=== PATIENT | female | born 1990 | race Two or more races ===

== ENCOUNTER 2019-01-17 19:52 | Emergency (ER) | payer SELFPAY ==
[~2019-01-17] VITALS: Ht 160 cm; Wt 54.4 kg
[2019-01-17] MEDS ORDERED: IV NORMAL SALINE 1000ML BAG 1,000 ML IV ONE (21:15)
[2019-01-17] MEDS ORDERED: ONDANSETRON PF 4 MG/2 ML VIAL. IV ONE (21:15)
--- NOTE | 2019-01-17 21:19 | PHYS DOC ---
Past Medical History Past Medical History: No Pertinent History Past Surgical History: No Surgical History Alcohol Use: Occasionally Drug Use: None Adult General Chief Complaint Chief Complaint: ABDOMINAL PAIN HPI HPI Patient is a 28 year old female that presents with abdominal pain and vaginal bleeding has been ongoing for month. The patient states he may that she was told that she possibly had a miscarriage. Is unsure if she ever expelled contents. States she went to her doctor's office in October was placed on a Depo shot. Rates her pain as 9/10 in severity. 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 Eyes: Denies change in visual acuity, redness, or eye pain [] HENT: Denies nasal congestion or sore throat [] Respiratory: Denies cough or shortness of breath [] Cardiovascular: No additional information not addressed in HPI [] GI: Reports abdominal pain, nausea Denies vomiting, bloody stools or diarrhea [] : Reports vaginal bleeding. Musculoskeletal: Denies back pain or joint pain [] Integument: Denies rash or skin lesions [] Neurologic: Denies headache, focal weakness or sensory changes [] Endocrine: Denies polyuria or polydipsia [] Complete systems were reviewed and found to be within normal limits, except as documented in this note. Current Medications Current Medications Current Medications Medications (Trade) Dose Ordered Sig/Kem Start Time Stop Time Status Last Admin Dose Admin Ondansetron HCl (Zofran) 4 mg 1X ONCE 01/17/19 21:15 01/17/19 21:20 DC 01/17/19 21:31 4 MG Sodium Chloride 1,000 ml @ 1,000 mls/hr 1X ONCE 01/17/19 21:15 01/17/19 22:14 DC 01/17/19 21:31 1,000 MLS/HR Allergies Allergies Allergies Coded Allergies Type Severity Reaction Last Updated Verified No Known Drug Allergies 06/11/13 No Physical Exam Physical Exam Constitutional: Well developed, well nourished, no acute distress, non-toxic appearance. [] HENT: Normocephalic, atraumatic, bilateral external ears normal, oropharynx moist, no oral exudates, nose normal. [] Eyes: PERRLA, EOMI, conjunctiva normal, no discharge. [] Neck: Normal range of motion, no tenderness, supple, no stridor. [] Cardiovascular:Heart rate regular rhythm, no murmur [] Lungs & Thorax: Bilateral breath sounds clear to auscultation [] Abdomen: Bowel sounds normal, soft, diffuse tenderness, no masses, no pulsatile masses. [] Skin: Warm, dry, no erythema, no rash. [] Back: No tenderness, no CVA tenderness. [] Extremities: No tenderness, no cyanosis, no clubbing, ROM intact, no edema. [] Neurologic: Alert and oriented X 3, normal motor function, normal sensory function, no focal deficits noted. [] Psychologic: Affect normal, judgement normal, mood normal. [] Current Patient Data Vital Signs Vital Signs Date Time Temp Pulse Resp B/P (MAP) Pulse Ox O2 Delivery O2 Flow Rate FiO2 01/17/19 20:15 98.5 67 18 104/60 (75) 98 Room Air 98.5 Lab Values Laboratory Tests Test 01/17/19 20:02 01/17/19 20:06 01/17/19 21:22 Urine Collection Type Unknown Urine Color Yellow Urine Clarity Clear Urine pH 7.0 Urine Specific [place] 1.025 Urine Protein Negative mg/dL (NEG-TRACE) Urine Glucose (UA) Negative mg/dL (NEG) Urine Ketones (Stick) Negative mg/dL (NEG) Urine Blood Large (NEG) Urine Nitrite Negative (NEG) Urine Bilirubin Negative (NEG) Urine Urobilinogen Dipstick 1.0 mg/dL (0.2 mg/dL) Urine Leukocyte Esterase Large (NEG) Urine RBC 11-20 /HPF (0-2) Urine WBC 20-40 /HPF (0-4) Urine Squamous Epithelial Cells Few /LPF Urine Bacteria Few /HPF (0-FEW) Urine Mucus Mod /LPF POC Urine HCG, Qualitative Hcg negative (Negative) White Blood Count 7.7 x10^3/uL (4.0-11.0) Red Blood Count 4.28 x10^6/uL (3.50-5.40) Hemoglobin 12.5 g/dL (12.0-15.5) Hematocrit 37.3 % (36.0-47.0) Mean Corpuscular Volume 87 fL (79-100) Mean Corpuscular Hemoglobin 29 pg (25-35) Mean Corpuscular Hemoglobin Concent 34 g/dL (31-37) Red Cell Distribution Width 14.6 % (11.5-14.5) H Platelet Count 229 x10^3/uL (140-400) Neutrophils (%) (Auto) 45 % (31-73) Lymphocytes (%) (Auto) 45 % (24-48) Monocytes (%) (Auto) 6 % (0-9) Eosinophils (%) (Auto) 3 % (0-3) Basophils (%) (Auto) 0 % (0-3) Neutrophils # (Auto) 3.5 x10^3/uL (1.8-7.7) Lymphocytes # (Auto) 3.5 x10^3/uL (1.0-4.8) Monocytes # (Auto) 0.5 x10^3/uL (0.0-1.1) Eosinophils # (Auto) 0.2 x10^3/uL (0.0-0.7) Basophils # (Auto) 0.0 x10^3/uL (0.0-0.2) Maternal Serum HCG Beta Subunit < 1 mIU/mL (0-5) Sodium Level 143 mmol/L (136-145) Potassium Level 3.5 mmol/L (3.5-5.1) Chloride Level 106 mmol/L (98-107) Carbon Dioxide Level 26 mmol/L (21-32) Anion Gap 11 (6-14) Blood Urea Nitrogen 12 mg/dL (7-20) Creatinine 0.8 mg/dL (0.6-1.0) Estimated GFR (Cockcroft-Gault) 86.7 BUN/Creatinine Ratio 15 (6-20) Glucose Level 102 mg/dL (70-99) H Calcium Level 9.0 mg/dL (8.5-10.1) Total Bilirubin 0.2 mg/dL (0.2-1.0) Aspartate Amino Transferase (AST) 13 U/L (15-37) L Alanine Aminotransferase (ALT) 20 U/L (14-59) Alkaline Phosphatase 111 U/L (46-116) Total Protein 8.1 g/dL (6.4-8.2) Albumin 4.2 g/dL (3.4-5.0) Albumin/Globulin Ratio 1.1 (1.0-1.7) Laboratory Tests 01/17/19 21:22 Laboratory Tests 01/17/19 21:22 EKG EKG [] Radiology/Procedures Radiology/Procedures [] Course & Med Decision Making Course & Med Decision Making Pertinent Labs and Imaging studies reviewed. (See chart for details) Will get labs, urine, ultrasound. Labs are unremarkable. Urine shows leukocytes and appears to have UTI. Ultrasound was unremarkable. Will d/c home on Keflex. Dragon Disclaimer Dragon Disclaimer This electronic medical record was generated, in whole or in part, using a voice recognition dictation system. Departure Departure Impression: Primary Impression: Vaginal bleeding Additional Impression: Urinary tract infection Disposition: HOME, SELF-CARE Condition: STABLE Referrals: NO PCP (PCP) Patient Instructions: Urinary Tract Infection Additional Instructions: Thank you for visiting [facility]. We appreciate you trusting us with your care. If any additional problems come up don't hesitate to return to visit us. Please follow up with your primary care provider so they can plan additional care if needed and know about the problem that you had. If symptoms worsen come back to the Emergency Department. Any concerning symptoms that start such as chest pain, shortness of air, weakness or numbness on one side of the body, running high fevers or any other concerning symptoms return to the ER. Please fill your medications at any pharmacy and follow the prescription instructions. You have been prescribed an antibiotic today to help fight your infection. Please take all of the antibiotic as directed. If after 48 hours the infection is not improving, please return for more care. If the infection worsens, return to ER for additional care. Scripts Ondansetron (ONDANSETRON ODT) 4 Mg Tab.rapdis 1 TAB PO PRN Q6-8HRS PRN for NAUSEA, #16 TAB Prov: ARNOLDO BARR APRN 01/17/19 Cephalexin (KEFLEX) 500 Mg Capsule 1 CAP PO BID for 7 Days, #14 CAP Prov: ARNOLDO BARR APRN 01/17/19 Problem Qualifiers Additional Impression: Urinary tract infection Urinary tract infection type: acute cystitis Hematuria presence: with hematuria Qualified Codes: N30.01 - Acute cystitis with hematuria ARNOLDO BARR APRN Jan 17, 2019 21:18
[2019-01-17 21:25] LABS: BILIRUBIN,URINE NEGATIVE (NEG); CLARITY,URINE CLEAR; COLOR,URINE YELLOW; NITRITE,URINE NEGATIVE (NEG); PROTEIN,URINE NEGATIVE (NEG-TRACE)
[2019-01-17 21:30] LABS: SQUAMOUS EPITHELIAL CELL,UR FEW /LPF
[2019-01-17 21:31] LABS: BACTERIA,URINE FEW /HPF (0-FEW)
[2019-01-17 21:31] LABS: BASO % 0 % (0-3); EOS # 0.2 x10^3/uL (0.0-0.7); EOS % 3 % (0-3); HEMATOCRIT 37.3 % (36.0-47.0); HEMOGLOBIN 12.5 g/dL (12.0-15.5); LYMPH # 3.5 x10^3/uL (1.0-4.8); LYMPH % 45 % (24-48); MEAN CORPUSCULAR HEMOGLOBIN 29 pg (25-35); MEAN CORPUSCULAR HGB CONC 34 g/dL (31-37); MEAN CORPUSCULAR VOLUME 87 fL (79-100); MONO # 0.5 x10^3/uL (0.0-1.1); MONO % 6 % (0-9); NEUT # 3.5 x10^3/uL (1.8-7.7); NEUT % 45 % (31-73); PLATELET COUNT 229 x10^3/uL (140-400); RED BLOOD COUNT 4.28 x10^6/uL (3.50-5.40); RED CELL DISTRIBUTION WIDTH 14.6 % (11.5-14.5); WHITE BLOOD COUNT 7.7 x10^3/uL (4.0-11.0)
[2019-01-17 21:32] LABS: WBC,URINE 20-40 /HPF (0-4)
[2019-01-17 21:40] LABS: CREATININE 0.8 mg/dL (0.6-1.0); GFR 86.7; POTASSIUM 3.5 mmol/L (3.5-5.1)
[2019-01-17 21:46] LABS: ALBUMIN 4.2 g/dL (3.4-5.0); ALBUMIN/GLOBULIN RATIO 1.1 (1.0-1.7); TOTAL BILIRUBIN 0.2 mg/dL (0.2-1.0); TOTAL PROTEIN 8.1 g/dL (6.4-8.2)
--- NOTE | 2019-01-17 23:21 | RAD ---
Transabdominal ultrasound the pelvis. HISTORY: Vaginal bleeding possible retained content from miscarriage Transabdominal ultrasound was performed. Uterus measured 8.4 x 3.1 x 5.2 cm. There is no uterine mass. Endometrium was 4 mm without definite retained products of conception. Right ovary was normal measuring 2.4 x 3.6 x 1.9 cm. There are small follicles in the right ovary. There is flow in the right ovary with color imaging and Doppler. Left ovary measured 4.7 x 2.3 x 4 cm. There is flow in the left ovary with color imaging and Doppler. There is a simple 1.9 cm cyst or follicle at the margin of the left ovary. IMPRESSION: 1. Simple left ovarian cyst or follicle. 2. No endometrial thickening noted. Electronically signed by: Bob Foster MD (01/17/2019 11:18 PM) [facility]
[2019-01-17 23:30] VITALS: BP 98/58
[2019-01-17] MEDS ORDERED: ONDA4TAB12 PO (23:45)
[2019-01-17] MEDS ORDERED: CEPH-264 PO (23:45)
== END 2019-01-17 23:58 | disposition home or self-care (01) ==
LOC: ER 19:52
DX: N30.01 Acute cystitis with hematuria (principal)
CPT/HCPCS: 36415; 76856; 80053; 81001; 81025; 84702; 85025; 87086; 96374; 99285; J2405; J7030

== ENCOUNTER 2019-05-11 18:22 | Emergency (ER) | payer SELFPAY ==
[~2019-05-11] VITALS: Ht 160 cm; Wt 54.4 kg
[~2019-05-11 18:22] MED LIST: CEPH-264 PO; ONDA4TAB12 PO
[2019-05-11] MEDS ORDERED: IV NORMAL SALINE 1000ML BAG 1,000 ML IV SCH (19:52)
[2019-05-11 19:59] LABS: BILIRUBIN,URINE NEGATIVE (NEG); CLARITY,URINE CLEAR; COLOR,URINE YELLOW; NITRITE,URINE NEGATIVE (NEG); PROTEIN,URINE NEGATIVE (NEG-TRACE); UROBILINOGEN,URINE 0.2 mg/dL (0.2 mg/dL)
[2019-05-11 20:05] LABS: SQUAMOUS EPITHELIAL CELL,UR FEW /LPF
[2019-05-11 20:06] LABS: BACTERIA,URINE 0 /HPF (0-FEW); WBC,URINE 0 /HPF (0-4)
--- NOTE | 2019-05-11 20:07 | PHYS DOC ---
Past Medical History Past Medical History: No Pertinent History Past Surgical History: No Surgical History Alcohol Use: Occasionally Drug Use: None Adult General Chief Complaint Chief Complaint: ABDOMINAL PAIN [facility] HPI 28-year-old female [place]-speaking presents to the emergency department with complaints of abdominal pain, right lower quadrant, vaginal bleeding 3 weeks. Unknown last menstrual period, she states potentially February. States the pain comes and goes, described as sharp. She describes nausea, vomiting. She describes intermittent fever. States is no possibility of . Nothing makes her pain worse, nothing makes her pain better. Review of Systems Review of Systems Constitutional: fever Respiratory: Denies cough or shortness of breath [] Cardiovascular: No additional information not addressed in HPI [] GI: abdominal pain, nausea, vomiting, no bloody stools or diarrhea [] : Denies dysuria or hematuria [] Musculoskeletal: Denies back pain or joint pain [] Neurologic: Denies headache, focal weakness or sensory changes [] All other systems were reviewed and found to be within normal limits, except as documented in this note. Current Medications Current Medications Current Medications Medications (Trade) Dose Ordered Sig/Kem Start Time Stop Time Status Last Admin Dose Admin Ketorolac Tromethamine (Toradol 30mg Vial) 30 mg 1X ONCE 05/11/19 23:45 05/11/19 23:46 05/11/19 23:37 30 MG Sodium Chloride 1,000 ml @ 1,000 mls/hr Q1H 05/11/19 19:52 05/11/19 20:51 DC 05/11/19 19:52 1,000 MLS/HR Allergies Allergies Allergies Coded Allergies Type Severity Reaction Last Updated Verified No Known Drug Allergies 06/11/13 No Physical Exam Physical Exam Constitutional: Well developed, well nourished, no acute distress, non-toxic appearance. [] Cardiovascular:Heart rate regular rhythm, no murmur [] Lungs & Thorax: Bilateral breath sounds clear to auscultation [] Abdomen: Bowel sounds normal, soft, lower abdominal tenderness right>left, no masses, no pulsatile masses. [] Skin: Warm, dry, no erythema, no rash. [] Back: No tenderness, no CVA tenderness. [] Extremities: No tenderness, no edema. [] Neurologic: Alert and oriented X 3, no focal deficits noted. [] Psychologic: Affect normal, judgement normal, mood normal. [] : right adnexal tenderness, no bleeding on vaginal exam Current Patient Data Vital Signs Vital Signs Date Time Temp Pulse Resp B/P (MAP) Pulse Ox O2 Delivery O2 Flow Rate FiO2 05/11/19 19:50 98.1 73 16 134/91 (105) 99 Room Air 98.1 Lab Values Laboratory Tests Test 05/11/19 19:50 05/11/19 19:53 05/11/19 20:05 Urine Collection Type Void Urine Color Yellow Urine Clarity Clear Urine pH 6.0 Urine Specific [place] 1.010 Urine Protein Negative mg/dL (NEG-TRACE) Urine Glucose (UA) Negative mg/dL (NEG) Urine Ketones (Stick) Negative mg/dL (NEG) Urine Blood Trace (NEG) Urine Nitrite Negative (NEG) Urine Bilirubin Negative (NEG) Urine Urobilinogen Dipstick 0.2 mg/dL (0.2 mg/dL) Urine Leukocyte Esterase Negative (NEG) Urine RBC 1-2 /HPF (0-2) Urine WBC 0 /HPF (0-4) Urine Squamous Epithelial Cells Few /LPF Urine Bacteria 0 /HPF (0-FEW) POC Urine HCG, Qualitative Hcg negative (Negative) White Blood Count 4.6 x10^3/uL (4.0-11.0) Red Blood Count 4.19 x10^6/uL (3.50-5.40) Hemoglobin 12.0 g/dL (12.0-15.5) Hematocrit 36.4 % (36.0-47.0) Mean Corpuscular Volume 87 fL (79-100) Mean Corpuscular Hemoglobin 29 pg (25-35) Mean Corpuscular Hemoglobin Concent 33 g/dL (31-37) Red Cell Distribution Width 13.6 % (11.5-14.5) Platelet Count 182 x10^3/uL (140-400) Neutrophils (%) (Auto) 30 % (31-73) L Lymphocytes (%) (Auto) 57 % (24-48) H Monocytes (%) (Auto) 11 % (0-9) H Eosinophils (%) (Auto) 2 % (0-3) Basophils (%) (Auto) 0 % (0-3) Neutrophils # (Auto) 1.4 x10^3/uL (1.8-7.7) L Lymphocytes # (Auto) 2.6 x10^3/uL (1.0-4.8) Monocytes # (Auto) 0.5 x10^3/uL (0.0-1.1) Eosinophils # (Auto) 0.1 x10^3/uL (0.0-0.7) Basophils # (Auto) 0.0 x10^3/uL (0.0-0.2) Sodium Level 141 mmol/L (136-145) Potassium Level 3.5 mmol/L (3.5-5.1) Chloride Level 103 mmol/L (98-107) Carbon Dioxide Level 27 mmol/L (21-32) Anion Gap 11 (6-14) Blood Urea Nitrogen 10 mg/dL (7-20) Creatinine 0.5 mg/dL (0.6-1.0) L Estimated GFR (Cockcroft-Gault) 149.1 BUN/Creatinine Ratio 20 (6-20) Glucose Level 100 mg/dL (70-99) H Calcium Level 8.9 mg/dL (8.5-10.1) Total Bilirubin 0.3 mg/dL (0.2-1.0) Aspartate Amino Transferase (AST) 26 U/L (15-37) Alanine Aminotransferase (ALT) 24 U/L (14-59) Alkaline Phosphatase 112 U/L (46-116) Total Protein 7.7 g/dL (6.4-8.2) Albumin 3.8 g/dL (3.4-5.0) Albumin/Globulin Ratio 1.0 (1.0-1.7) Lipase 448 U/L (73-393) H Laboratory Tests 05/11/19 20:05 Laboratory Tests 05/11/19 20:05 EKG EKG [] Radiology/Procedures Radiology/Procedures [facility] [address] [place] [address] IMAGING REPORT Signed PATIENT: ANURAG POPE LACCOUNT: [id number] : 1990 LOCATION: ER AGE: 28 SEX: F EXAM STATUS: REG ER ORD. PHYSICIAN: CHINEDU KAHN MD REASON: vaginal bleeding, right lower quadrant tenderness on pelvic PROCEDURE: PELVIS W/TV Examination: PELVIS W/TV History: Bleeding for the past 3 weeks. Pain. Comparison/Correlation: 01/17/2019 pelvic ultrasound exam Findings: Transabdominal and transvaginal pelvic ultrasound exam was performed. Transvaginal technique was utilized to better assess the adnexal structures. Uterus measures 6.7 cm x 4.4 cm x 0.9 cm. Slight heterogeneity of the myometrium is present. Endometrial thickness is 0.34 cm. No intrauterine gestational sac or fluid collection. Right ovary measures 2.4 cm x 2.8 cm x 1.9 cm. The left ovary measures 3 cm x 2.2 cm x 2.1 cm. Normal ovarian flow. No adnexal masses. No pelvic free fluid. Adnexal follicles are physiologic in appearance. Impression: Slight heterogeneity of the myometrium which may represent adenomyosis or fibroid involvement. No dominant mass lesion involving the myometrium. Electronically signed by: Telly Carson MD (05/11/2019 11:28 PM) [facility] DICTATED and SIGNED BY: TELLY CARSON MD DATE: 05/11/192327 [] Course & Med Decision Making Course & Med Decision Making Pertinent Labs and Imaging studies reviewed. (See chart for details) []28-year-old female [place]-speaking presents to the emergency department with complaints of abdominal pain, right lower quadrant, vaginal bleeding 3 weeks. Unknown last menstrual period, she states potentially February. States the pain comes and goes, described as sharp. She describes nausea, vomiting. She describes intermittent fever. States is no possibility of . Nothing makes her pain worse, nothing makes her pain better. Labs, imaging reviewed with patient, Hgb 12.0, urinalysis negative, hCG negative Ultrasound shows evidence of adenomyosis with possible fibroid involvement. Discussed findings with patient at bedside Recommend dc home with follow up as outpatient with PCP Tramadol rx given for a few days 2/ pain Dragon Disclaimer Dragon Disclaimer This electronic medical record was generated, in whole or in part, using a voice recognition dictation system. Departure Departure Impression: Primary Impression: Pelvic pain Additional Impression: Uterine fibroid Disposition: HOME, SELF-CARE Condition: IMPROVED Referrals: NO PCP (PCP) Patient Instructions: Pelvic Pain, Female, [id number], Uterine Fibroid, [id number] Additional Instructions: Recommend follow up with PCP 3 - 5 days Return to the ER with worsening symptoms, intractable pain, fever, altered mental status Tylenol/Motrin as needed for pain No evidence of acute infection appreciated US shows adenomyosis/fibroid Scripts Tramadol Hcl (TRAMADOL HCL) 50 Mg Tablet 50 MG PO Q8HRS PRN for PAIN for 3 Days, #9 TAB 0 Refills Prov: CHINEDU KAHN MD 05/11/19 Problem Qualifiers Additional Impression: Uterine fibroid Uterine leiomyoma location: unspecified location Qualified Codes: D25.9 - Leiomyoma of uterus, unspecified CHINEDU KAHN MD May 11, 2019 20:07
[2019-05-11 20:15] LABS: BASO % 0 % (0-3); EOS # 0.1 x10^3/uL (0.0-0.7); EOS % 2 % (0-3); HEMATOCRIT 36.4 % (36.0-47.0); LYMPH # 2.6 x10^3/uL (1.0-4.8); LYMPH % 57 % (24-48); MEAN CORPUSCULAR HEMOGLOBIN 29 pg (25-35); MEAN CORPUSCULAR HGB CONC 33 g/dL (31-37); MEAN CORPUSCULAR VOLUME 87 fL (79-100); MONO # 0.5 x10^3/uL (0.0-1.1); MONO % 11 % (0-9); NEUT # 1.4 x10^3/uL (1.8-7.7); NEUT % 30 % (31-73); PLATELET COUNT 182 x10^3/uL (140-400); RED BLOOD COUNT 4.19 x10^6/uL (3.50-5.40); RED CELL DISTRIBUTION WIDTH 13.6 % (11.5-14.5); WHITE BLOOD COUNT 4.6 x10^3/uL (4.0-11.0)
[2019-05-11 20:29] LABS: CALCIUM 8.9 mg/dL (8.5-10.1); CREATININE 0.5 mg/dL (0.6-1.0); GFR 149.1; POTASSIUM 3.5 mmol/L (3.5-5.1)
[2019-05-11 20:32] LABS: ALBUMIN 3.8 g/dL (3.4-5.0); TOTAL BILIRUBIN 0.3 mg/dL (0.2-1.0); TOTAL PROTEIN 7.7 g/dL (6.4-8.2)
--- NOTE | 2019-05-11 23:31 | RAD ---
Examination: PELVIS W/TV History: Bleeding for the past 3 weeks. Pain. Comparison/Correlation: 01/17/2019 pelvic ultrasound exam Findings: Transabdominal and transvaginal pelvic ultrasound exam was performed. Transvaginal technique was utilized to better assess the adnexal structures. Uterus measures 6.7 cm x 4.4 cm x 0.9 cm. Slight heterogeneity of the myometrium is present. Endometrial thickness is 0.34 cm. No intrauterine gestational sac or fluid collection. Right ovary measures 2.4 cm x 2.8 cm x 1.9 cm. The left ovary measures 3 cm x 2.2 cm x 2.1 cm. Normal ovarian flow. No adnexal masses. No pelvic free fluid. Adnexal follicles are physiologic in appearance. Impression: Slight heterogeneity of the myometrium which may represent adenomyosis or fibroid involvement. No dominant mass lesion involving the myometrium. Electronically signed by: Telly Cordero MD (05/11/2019 11:28 PM) [facility]
[2019-05-11] MEDS ORDERED: KETOROLAC 30 MG/ML VIAL. IVP ONE (23:45)
[2019-05-11] MEDS ORDERED: TRAM50TA PO (23:47)
[2019-05-11 23:49] VITALS: BP 103/65
[2019-05-14 18:09] LABS: GC PROBE Negative (Negative)
== END 2019-05-11 23:55 | disposition home or self-care (01) ==
LOC: ER 18:22
DX: R10.2 Pelvic and perineal pain (principal); D25.9 Leiomyoma of uterus, unspecified; R11.2 Nausea with vomiting, unspecified; R10.31 Right lower quadrant pain; N93.9 Abnormal uterine and vaginal bleeding, unspecified
CPT/HCPCS: 36415; 76830; 76856; 80053; 81001; 81025; 83690; 85025; 87491; 87591; 96361; 96374; 99285; J1885; J7030; Q0111